=== PATIENT | male | born 1975 | race Caucasian/White ===

== ENCOUNTER 2017-09-04 16:06 | Emergency (ER) | payer MEDICAID ==
[~2017-09-04] VITALS: Ht 157.5 cm; Wt 68.2 kg
[2017-09-04 16:20] VITALS: BP 173/98
[2017-09-04 16:32] VITALS: BP 173/98
--- NOTE | 2017-09-04 17:09 | NUR ---
PT TAKEN TO CT
--- NOTE | 2017-09-04 17:37 | NUR ---
Pt presents to ED with severe, throbbing BARDALES x3 days. Pt states BARDALES throughout his head and the worst in his life with light sensitivity. VSS accept for pain 10/10. Sitting in chair with son at side for support. ERMD aware. Continue to monitor.
[2017-09-04] MEDS ORDERED: cefTRIAXone 1,000 MG VIAL ONE (18:45)
[2017-09-04] MEDS: KETOROLAC 60 MG/2 ML VIAL IM ONE (18:53)
[2017-09-04] MEDS: DEXAMETHASONE 10 MG/ML VIAL IM ONE (18:53)
[2017-09-04] MEDS: cefTRIAXone 1,000 MG in LIDOCAINE 1% ***ER ONLY *** 2.1 ML IM ONE (18:54)
--- NOTE | 2017-09-04 19:18 | NUR ---
REPORT RECEIVED FROM OPAL ALVAREZ RN.
--- NOTE | 2017-09-04 19:36 | NUR ---
Patient discharged with v/s stable. Written and verbal after care instructions given and explained. Patient alert, oriented and verbalized understanding of instructions. Ambulatory with steady gait. All questions addressed prior to discharge. ID band removed. Patient advised to follow up with PMD. Rx of CLINDAMYCIN AND FIORICET given. Patient educated on indication of medication including possible reaction and side effects. Opportunity to ask questions provided and answered.
== END 2017-09-04 19:36 | disposition home or self-care (01) ==
LOC: MED 16:06
DX: J32.9 Chronic sinusitis, unspecified (principal)
CPT/HCPCS: 70450; 70486; 96372; 99284; J0696; J1100; J1885; J2001

== ENCOUNTER 2018-12-01 22:09 | Emergency (ER) | payer MEDICAID ==
[~2018-12-01] VITALS: Ht 160 cm; Wt 67.1 kg
[2018-12-01 22:10] VITALS: BP 132/90
--- NOTE | 2018-12-01 22:13 | NUR ---
TO LOBBY A/W BED, AMBULATORY
--- NOTE | 2018-12-01 22:41 | NUR ---
TO BED 11.
--- NOTE | 2018-12-01 22:42 | NUR ---
ASSUMED CARE OF PT AT THIS TIME. C/O SMALL, RIGHT EYEBROW LACERATION X 1 HOUR AGO S/P HITTING HIS HEAD ON A CHAIR. NO KO. BLEEDING WELL CONTROLLED AT THIS TIME. AAOX4 WITH EVEN AND STEADY GAIT; PATIENT STATES PAIN OF 8/10; VSS; PATIENT POSITIONED FOR COMFORT; HOB ELEVATED; BEDRAILS UP X2; BED DOWN. ER MD MADE AWARE OF PT STATUS. WILL CONTINUE TO MONITOR.
[2018-12-01] MEDS ORDERED: LIDOCAINE 1% 500 MG/50 ML VIAL INJ SCH (23:15)
[2018-12-01] MEDS ORDERED: LIDOCAINE MPF 1% - 5 mL VIAL 5 ML ONE (23:26)
[2018-12-01] MEDS ORDERED: BACITRACIN OINT 500 UNITS/GM PKT TP ONE (23:55)
[2018-12-02] VITALS: BP 132/90
[2018-12-02] MEDS ORDERED: BACITRACIN OINT 500 UNITS/GM PKT TP ONE (00:05)
== END 2018-12-02 | disposition home or self-care (01) ==
LOC: MED 22:09
DX: S01.111A Laceration without foreign body of right eyelid and periocular area, initial encounter (principal); W22.03XA Walked into furniture, initial encounter; Y93.89 Activity, other specified; Y92.89 Other specified places as the place of occurrence of the external cause; Y99.8 Other external cause status
CPT/HCPCS: 12011; 90471; 90715; 99283; J2001

== ENCOUNTER 2019-03-31 02:50 | Emergency (ER) | payer MEDICAID ==
[~2019-03-31] VITALS: Ht 160 cm; Wt 66.7 kg
[2019-03-31 02:54] VITALS: BP 158/105
--- NOTE | 2019-03-31 02:55 | NUR ---
PT TAKEN TO BED 2
--- NOTE | 2019-03-31 03:05 | NUR ---
43 Y/O MALE C/O FRONTAL AND MAXIALLARY SINUS PAIN, CONGESTION, AND COUGH X3 DAYS. A/OX4 AND FOLLOWS COMMANDS. BREATHING IS UNLABORED AND SYMMETRICAL. LUNGS SOUNDS CLEAR/DIMINISHED ON LUNGS SOUNDS RR 20; 98% ON RA. NON PRODUCTIVE COUGH NOTED. PAIN IS 8/10 PAIN. ERMD MADE AWARE OF STATUS. SIDE RAILSX2. NKDA PMH:DENIES RX:DENIES
--- NOTE | 2019-03-31 03:10 | NUR ---
ER MD AND RT. EVALUATING PATIENT AT BEDSIDE.
[2019-03-31 03:21] VITALS: BP 148/90
--- NOTE | 2019-03-31 03:21 | NUR ---
Patient discharged with v/s stable. Written and verbal after care instructions given and explained. Patient alert, oriented and verbalized understanding of instructions. Ambulatory with steady gait. All questions addressed prior to discharge. ID band removed. Patient advised to follow up with PMD. Rx of PREDNISONE 20MG; MOTRIN 600MG; SUDAFED 120MG given. Patient educated on indication of medication including possible reaction and side effects. Opportunity to ask questions provided and answered.
== END 2019-03-31 03:21 | disposition home or self-care (01) ==
LOC: MED 02:50
DX: J32.9 Chronic sinusitis, unspecified (principal)
CPT/HCPCS: 99283

== ENCOUNTER 2024-01-10 04:09 | Emergency (ER) | payer MEDICAID, OTHER ==
[~2024-01-10] VITALS: Ht 167.6 cm; Wt 63.5 kg
[2024-01-10 04:13] VITALS: BP 183/103; PULSE 66; RESP 18; TEMP 98; O2SAT 98
[2024-01-10] MEDS ORDERED: LIDO5CRE19 TP (05:06)
[2024-01-10] MEDS ORDERED: IBUP-2218 PO (05:06)
[2024-01-10] MEDS: KETOROLAC 30 MG/ML VIAL IM ONE (05:13)
[2024-01-10 05:35] VITALS: BP 142/89; PULSE 72; RESP 18; TEMP 98; O2SAT 98
== END 2024-01-10 05:35 | disposition home or self-care (01) ==
LOC: MED 04:09
DX: M76.51 Patellar tendinitis, right knee (principal); R03.0 Elevated blood-pressure reading, without diagnosis of hypertension; Z79.1 Long term (current) use of non-steroidal anti-inflammatories (NSAID); Z79.899 Other long term (current) drug therapy
CPT/HCPCS: 73562; 96372; 99283; J1885; Q0092